=== PATIENT | male | born 1945 | race Two or more races ===

== ENCOUNTER 2021-05-12 06:27 | Day surgery (SDC) | payer OTHER | END 2021-05-12 12:40 | disposition home or self-care (01) | LOC: AMB-ENDOS 06:27 → CIR.AMB 13:15 | PROVIDERS: ATTEND Colon & Rectal Surgery | DX: D12.2 Benign neoplasm of ascending colon (principal); D12.3 Benign neoplasm of transverse colon; K64.8 Other hemorrhoids; Z12.11 Encounter for screening for malignant neoplasm of colon ==